=== PATIENT | female | born 1975 | race Caucasian/White ===

== ENCOUNTER 2022-08-14 12:32 | Emergency (ER) | payer SELFPAY ==
[2022-08-14] MEDS ORDERED: cefTRIAXone 1 GM Vial IM ONE (12:50)
[2022-08-14] MEDS ORDERED: Ibuprofen 600 MG Tab PO ONE (12:51)
[2022-08-14] MEDS ORDERED: Lidocaine 1% 5 ML VIAL INJECT ONE (12:51)
== END 2022-08-14 14:45 | disposition home or self-care (01) ==
LOC: MW.ED 12:32
DX: M25.511 Pain in right shoulder (principal); K04.7 Periapical abscess without sinus; Z88.1 Allergy status to other antibiotic agents; Z79.899 Other long term (current) drug therapy
CPT/HCPCS: 73030; 96372; 99283; A9270; J0696

== ENCOUNTER 2022-10-06 14:36 | Emergency (ER) | payer SELFPAY ==
[2022-10-06] MEDS ORDERED: Sodium Chloride 0.9% 10 ML Syringe FLUSH PRN (15:51)
[2022-10-06] MEDS ORDERED: Sodium Chloride 0.9% 2.5 ML Syringe FLUSH PRN (15:51)
[2022-10-06] MEDS ORDERED: Ketorolac 60 MG/2 ML SDV IM ONE (15:53)
[2022-10-06] MEDS ORDERED: Ondansetron 4 MG/2 ML SDV IVPUSH ONE (15:53)
[2022-10-06] MEDS ORDERED: Sodium Chloride 0.9% 1,000 ML IV ONE (15:53)
[2022-10-06 16:09] LABS: CARBON DIOXIDE,CO2 32.5 mmol/L (21.0-32.0); POTASSIUM,K 4.1 mmol/L (3.5-5.1)
[2022-10-06 17:12] LABS: CORONAVIRUS COVID-19 NAA NEGATIVE (NEGATIVE); INFLUENZA A NAA NEGATIVE (NEGATIVE); INFLUENZA B NAA NEGATIVE (NEGATIVE)
[2022-10-06] MEDS ORDERED: Iopamidol 755 Mg/ML 100 ML Bottle IVPUSH ONE (17:26)
== END 2022-10-06 18:39 | disposition home or self-care (01) ==
LOC: MW.ED 14:36
DX: J06.9 Acute upper respiratory infection, unspecified (principal); K52.9 Noninfective gastroenteritis and colitis, unspecified; Z20.822 Contact with and (suspected) exposure to COVID-19; Z79.899 Other long term (current) drug therapy; Z88.1 Allergy status to other antibiotic agents
CPT/HCPCS: 0240U; 36415; 74177; 74177-26; 76705; 76705-26; 80053; 81001; 81025; 83690; 83735; 85025; 96361; 96372; 96374; 99284-25; J1885; J2405; J3490; J7030; Q9967

== ENCOUNTER 2022-10-09 20:13 | Emergency (ER) | payer SELFPAY ==
[2022-10-09] MEDS ORDERED: Sodium Chloride 0.9% 1,000 ML IV ONE (20:52)
[2022-10-09] MEDS ORDERED: Ondansetron 4 MG/2 ML SDV IVPUSH ONE (21:02)
[2022-10-09] MEDS ORDERED: Diphtheria,Pertussis(Acell),Tetanus Vaccine 0.5 ML Syringe IM ONE (21:50)
[2022-10-09 21:53] LABS: CARBON DIOXIDE,CO2 29.1 mmol/L (21.0-32.0); POTASSIUM,K 4.2 mmol/L (3.5-5.1)
[2022-10-09 22:08] LABS: CORONAVIRUS COVID-19 NAA NEGATIVE (NEGATIVE); INFLUENZA A NAA NEGATIVE (NEGATIVE); INFLUENZA B NAA NEGATIVE (NEGATIVE)
== END 2022-10-10 02:03 | disposition home or self-care (01) ==
LOC: MW.ED 20:13
DX: R55 Syncope and collapse (principal); F19.10 Other psychoactive substance abuse, uncomplicated; R11.2 Nausea with vomiting, unspecified; Z88.1 Allergy status to other antibiotic agents; Z79.899 Other long term (current) drug therapy; Z20.822 Contact with and (suspected) exposure to COVID-19; Z23 Encounter for immunization
CPT/HCPCS: 0240U; 36415; 70450; 80053; 80305; 80307; 81001; 85025; 87086; 90471; 90715; 93005; 96361; 96374; 99284; J2405; J7030; 87088; 87186

== ENCOUNTER 2022-10-17 17:09 | Emergency (ER) | payer SELFPAY ==
[2022-10-17] MEDS ORDERED: Sodium Chloride 0.9% 2.5 ML Syringe FLUSH PRN (17:43)
[2022-10-17] MEDS ORDERED: Nitroglycerin 0.4 MG Tab.SL SL ONE (17:43)
[2022-10-17] MEDS ORDERED: Sodium Chloride 0.9% 1,000 ML IV ONE (17:43)
[2022-10-17] MEDS ORDERED: Sodium Chloride 0.9% 10 ML Syringe FLUSH PRN (17:43)
[2022-10-17] MEDS ORDERED: Ketorolac 30 MG/ML SDV IVPUSH ONE (17:49)
[2022-10-17] MEDS ORDERED: Albuterol/Ipratropium 3.0-0.5 MG/3 ML Neb Soln NEB ONE (18:12)
[2022-10-17 18:23] LABS: CARBON DIOXIDE,CO2 26.9 mmol/L (21.0-32.0)
[2022-10-17] MEDS ORDERED: Magnesium Sulfate/Water 2 GM in Premix Bag 1 BAG IV ONE (18:54)
[2022-10-17] MEDS ORDERED: Iopamidol 755 MG/ML 500 ML Multipack Bottle IVPUSH STA (20:27)
== END 2022-10-17 21:25 | disposition home or self-care (01) ==
LOC: MW.ED 17:09
DX: R55 Syncope and collapse (principal); J06.9 Acute upper respiratory infection, unspecified; R06.2 Wheezing; R07.2 Precordial pain; Z88.1 Allergy status to other antibiotic agents
CPT/HCPCS: 36415; 70450; 71045; 71275; 80053; 82150; 83690; 83735; 84484; 85025; 85379; 85610; 93005; 96361; 96365; 96366; 96375; 99285; J1885; J3475; J3490; J7030; Q9967; J7620-GY

== ENCOUNTER 2022-10-21 11:20 | Emergency (ER) | payer SELFPAY ==
[2022-10-21] MEDS ORDERED: Ibuprofen 400 MG Tab PO ONE (11:27)
[2022-10-21] MEDS ORDERED: Aspirin 81 MG Tab.Chew PO ONE (11:27)
[2022-10-21] MEDS ORDERED: Acetaminophen 325 MG Tab PO ONE (11:27)
[2022-10-21] MEDS ORDERED: Lactated Ringers 1,000 ML IV ONE (11:30)
[2022-10-21 12:16] LABS: CARBON DIOXIDE,CO2 30.4 mmol/L (21.0-32.0); POTASSIUM,K 4.2 mmol/L (3.5-5.1)
[2022-10-21 12:21] LABS: CORONAVIRUS COVID-19 NAA NEGATIVE (NEGATIVE); INFLUENZA A NAA NEGATIVE (NEGATIVE); INFLUENZA B NAA NEGATIVE (NEGATIVE); RESPIRATORY SYNCYTIAL VIR NAA POSITIVE (NEGATIVE)
[2022-10-21] MEDS ORDERED: methylPREDNISolone Sodium Succinate 125 MG/2 ML SDV IVPUSH ONE (12:56)
[2022-10-21] MEDS ORDERED: Albuterol/Ipratropium 3.0-0.5 MG/3 ML Neb Soln NEB ONE (12:58)
== END 2022-10-21 15:05 | disposition home or self-care (01) ==
LOC: MW.ED 11:20
DX: R50.9 Fever, unspecified (principal); B97.4 Respiratory syncytial virus as the cause of diseases classified elsewhere; E03.9 Hypothyroidism, unspecified; Z88.1 Allergy status to other antibiotic agents; Z79.899 Other long term (current) drug therapy; Z20.822 Contact with and (suspected) exposure to COVID-19
CPT/HCPCS: 0241U; 36415; 71045; 80053; 83605; 83880; 84484; 85025; 85610; 87040; 94640; 96361; 96374; 99285; A9270; J2930; J7120; J7620-GY

== ENCOUNTER 2022-10-23 00:07 | Emergency (ER) | payer SELFPAY ==
[2022-10-23 00:59] LABS: CARBON DIOXIDE,CO2 26.5 mmol/L (21.0-32.0); POTASSIUM,K 3.3 mmol/L (3.5-5.1)
[2022-10-23] MEDS ORDERED: Morphine 4 MG/ML Syringe IVPUSH STA (01:22)
[2022-10-23] MEDS ORDERED: Potassium Chloride 10% 20 MEQ/15 ML Soln 30 ML UD Cup PO ONE (01:22)
[2022-10-23] MEDS ORDERED: Magnesium Sulfate/Water 2 GM in Premix Bag 1 BAG IV ONE (01:22)
[2022-10-23] MEDS ORDERED: Iopamidol 755 MG/ML 500 ML Multipack Bottle IVPUSH ONE (01:29)
[2022-10-23] MEDS ORDERED: Lactated Ringers 1,000 ML IV STA (01:50)
[2022-10-23] MEDS ORDERED: Magnesium Oxide 400 MG Tab PO ONE (03:21)
== END 2022-10-23 03:32 | disposition home or self-care (01) ==
LOC: MW.ED 00:07
DX: R07.89 Other chest pain (principal); B97.4 Respiratory syncytial virus as the cause of diseases classified elsewhere; D64.9 Anemia, unspecified; E03.9 Hypothyroidism, unspecified; F17.210 Nicotine dependence, cigarettes, uncomplicated; Z88.1 Allergy status to other antibiotic agents
CPT/HCPCS: 36415; 71045; 71260; 74177; 80053; 81001; 83735; 84484; 85014; 85018; 85025; 93005; 96365; 96366; 96375; 99285; A9270; J2270; J3475; J7120; Q9967

== ENCOUNTER 2022-10-24 11:19 | Emergency (ER) | payer SELFPAY ==
[2022-10-24] MEDS ORDERED: Acetaminophen 325 MG Tab PO ONE (12:17)
[2022-10-24] MEDS ORDERED: Ibuprofen 400 MG Tab PO ONE (12:17)
[2022-10-24] MEDS ORDERED: Lidocaine 5% 700 MG Patch TOP ONE (12:17)
[2022-10-24 13:05] LABS: CARBON DIOXIDE,CO2 27.6 mmol/L (21.0-32.0); POTASSIUM,K 4.7 mmol/L (3.5-5.1)
== END 2022-10-24 14:09 | disposition home or self-care (01) ==
LOC: MW.ED 11:19
DX: R07.89 Other chest pain (principal); Z88.8 Allergy status to other drugs, medicaments and biological substances; Z79.899 Other long term (current) drug therapy
CPT/HCPCS: 36415; 71045; 80053; 85025; 93005; 99285; A9270

== ENCOUNTER 2022-11-03 14:44 | Emergency (ER) | payer SELFPAY ==
[2022-11-03] MEDS ORDERED: Sodium Chloride 0.9% 10 ML Syringe FLUSH PRN (14:52)
[2022-11-03] MEDS ORDERED: Sodium Chloride 0.9% 2.5 ML Syringe FLUSH PRN (14:52)
[2022-11-03] MEDS ORDERED: Lidocaine 5% 700 MG Patch TOP ONE (15:17)
[2022-11-03 15:39] LABS: CARBON DIOXIDE,CO2 29.9 mmol/L (21.0-32.0); POTASSIUM,K 4.2 mmol/L (3.5-5.1)
== END 2022-11-03 16:51 | disposition home or self-care (01) ==
LOC: MW.ED 14:44
DX: N63.10 Unspecified lump in the right breast, unspecified quadrant (principal); E03.9 Hypothyroidism, unspecified; F17.210 Nicotine dependence, cigarettes, uncomplicated; Z88.1 Allergy status to other antibiotic agents; Z79.899 Other long term (current) drug therapy
CPT/HCPCS: 36415; 71045; 80053; 84484; 85025; 93005; 99285; A9270; J3490